=== PATIENT | male | born 1935 | race Caucasian/White ===

== ENCOUNTER → 2016-05-13 | Outpatient (CLI) | payer MEDICARE, BC ==
[~2016-05-13] MED LIST: ACCUPRIL10 MG PO; ALAVERT; AMLODIPINE; AMLODIPINE BESYL5 MG PO; AMLODIPINE BESYLATE PO; ATENOLOL50 MG PO; CERTAGEN PO; CLARITIN10 M2 PO; CLINDAMYCIN HC300 MG PO; COUMADIN PO; COUMADIN4 MG PO; FINASTERIDE PO; FINASTERIDE5 M1 PO; FINASTERIDE5 MG PO; FISH OIL; FISH OIL500 MG PO; HYTRIN PO; IMDUR PO; IMDUR-ER30 M1 PO; IMDUR-ER30 M3 PO; ISOSORBIDE ER PO; LIPITOR PO; LIPITOR20 MG PO; LORATADINE PO; MULTIVITAMIN; MULTIVITAMINS1 EAC2 PO; NORVASC10 MG PO; OCCUVITE PO; OCUVITE LUTEIN PO; OCUVITE TABLET1 TAB PO; OLMESARTAN; PRILOSEC PO; PROPAFENONE HC150 MG PO; PROPAFENONE PO; RYTHMOL PO; RYTHMOL150 MG PO; SUPER B-50 COMP1 CAP PO; TERAZOSIN PO; VIT B-12 PO; VITAMIN B12; VITAMIN D3; VITAMIN D3400 UNI1 PO; WARFARIN PO; [UNRECOGNIZED DRUG - OTHER]
== END | disposition home or self-care (01) ==
LOC: CSSDAY 09:09
DX: M81.0 Age-related osteoporosis without current pathological fracture (principal); E21.0 Primary hyperparathyroidism; Z79.899 Other long term (current) drug therapy
CPT/HCPCS: 36415; 82310; 96372; J0897